=== PATIENT | female | born 1980 | race Caucasian/White ===

== ENCOUNTER 2020-05-16 23:34 | Emergency (ER) | payer SELFPAY ==
[2020-05-17] MEDS ORDERED: IBUPROFEN 400 MG TAB ONE (00:25)
--- NOTE | 2020-05-17 00:43 | EDPHYS ---
Physician Documentation [facility] Name: Suyapa Camara Age: 39 yrs Sex: Female : 1980 Arrival Date: 05/16/2020 Time: 23:37 Bed 18 Private MD: ARABELLA Physician Nathanael Ferreira HPI: 05/17 00:23 This 39 yrs old Female presents to ER via Wheelchair with complaints of Fall kb Injury, Ankle Injury, Ankle Swelling. 00:23 The patient presents with an injury, pain, swelling, tenderness. The complaints affect kb the right ankle. Onset: The symptoms/episode began/occurred "a few hours ago". Context: The problem was sustained at home, resulted from a mis-step by the patient, The patient can partially bear weight on the affected extremity. must have assistance. Associated signs and symptoms: Pertinent positives: swelling, Pertinent negatives: calf tenderness, fever, nausea, numbness, rash, tingling, vomiting, warmth, weakness. Modifying factors: The symptoms are alleviated by nothing, the symptoms are aggravated by weight bearing, movement. Severity of symptoms: At their worst the symptoms were moderate, in the emergency department the symptoms are unchanged. The patient has not experienced similar symptoms in the past. The patient has not recently seen a physician. 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 - Social history:: Smoking status: Patient reports the use of cigarette tobacco products, smokes one pack cigarettes per day. ROS: 00:22 Constitutional: Negative for fever, chills, and weight loss, Cardiovascular: Negative kb for chest pain, palpitations, and edema, Respiratory: Negative for shortness of breath, cough, wheezing, and pleuritic chest pain, Abdomen/GI: Negative for abdominal pain, nausea, vomiting, diarrhea, and constipation, Back: Negative for injury and pain, Skin: Negative for injury, rash, and discoloration, Neuro: Negative for headache, weakness, numbness, tingling, and seizure. 00:22 MS/extremity: Positive for injury or acute deformity, decreased range of motion, pain, swelling, tenderness, of the right medial malleolus and right lateral malleolus. Exam: 00:22 Constitutional: This is a well developed, well nourished patient who is awake, alert, kb and in no acute distress. Head/Face: Normocephalic, atraumatic. Chest/axilla: Normal chest wall appearance and motion. Nontender with no deformity. No lesions are appreciated. Cardiovascular: Regular rate and rhythm with a normal S1 and S2. No gallops, murmurs, or rubs. Normal PMI, no JVD. No pulse deficits. Respiratory: Lungs have equal breath sounds bilaterally, clear to auscultation and percussion. No rales, rhonchi or wheezes noted. No increased work of breathing, no retractions or nasal flaring. Abdomen/GI: Soft, non-tender, with normal bowel sounds. No distension or tympany. No guarding or rebound. No evidence of tenderness throughout. Skin: Warm, dry with normal turgor. Normal color with no rashes, no lesions, and no evidence of cellulitis. Neuro: Awake and alert, GCS 15, oriented to person, place, time, and situation. Cranial nerves II-XII grossly intact. Motor strength 5/5 in all extremities. Sensory grossly intact. Cerebellar exam normal. Normal gait. 00:22 Musculoskeletal/extremity: Extremities: grossly normal except: noted in the right medial malleolus and right lateral malleolus: decreased ROM, pain, swelling, tenderness, ROM: limited active range of motion due to pain, limited passive range of motion due to pain, Circulation is intact in all extremities. Sensation intact. Weight bearing: is unable to bear weight. Vital Signs: 00:04 BP 128 / 79; Pulse 81; Resp 20; Temp 98.5; Pulse Ox 96% on R/A; Weight 81.65 kg; Height vc 5 ft. 3 in. (160.02 cm); Pain 2/10; 01:00 BP 123 / 71; Pulse 72; Resp 21; Pulse Ox 97% on R/A; Pain 1/10; vc 00:04 Body Mass Index 31.89 (81.65 kg, 160.02 cm) vc MDM: 00:08 Patient medically screened. kb 00:22 Data reviewed: vital signs, nurses notes. Data interpreted: Pulse oximetry: on room air kb is 96 %. Interpretation: normal. 00:42 Counseling: I had a detailed discussion with the patient and/or guardian regarding: the kb historical points, exam findings, and any diagnostic results supporting the discharge/admit diagnosis, radiology results, the need for outpatient follow up, a orthopedic surgeon, to return to the emergency department if symptoms worsen or persist or if there are any questions or concerns that arise at home. 05/17 00:08 Order name: Ankle Right 3 View XRAY kb 05/17 00:41 Order name: Crutches; Complete Time: 02:02 kb 05/17 00:41 Order name: Short Leg Splint; Complete Time: 02:02 kb Administered Medications: 00:20 Drug: Ibuprofen 400 mg Route: PO; vc 00:53 Follow up: Response: No adverse reaction vc Disposition: 05/17/20 00:43 Discharged to Home. Impression: Sprain of ankle. - Condition is Stable. - Discharge Instructions: Ankle Sprain, [id number]. - Prescriptions for Ibuprofen 800 mg Oral Tablet - take 1 tablet by ORAL route every 8 hours As needed take with food; 30 tablet. - Medication Reconciliation Form, Thank You Letter, Antibiotic Education, Prescription Opioid Use form. - Follow up: Emergency Department; When: As needed; Reason: Worsening of condition. Follow up: Private Physician; When: 2 - 3 days; Reason: Recheck today's complaints, Continuance of care, Re-evaluation by your physician. Addendum: 05/18/2020 08:47 Co-signature as Attending Physician, Nathanael Ferreira MD I agree with the assessment and c cotto plan of care. Signatures: Dispatcher [employer] Corine Henriquez, SUZIE-C ENVIRONMENTAL OFFICER-Nathanael Yin MD MD cha Calcote, Vanessa RN RN vc Corrections: (The following items were deleted from the chart) 05/17 01:43 00:43 05/17/2020 00:43 Discharged to Home. Impression: Sprain of ankle. Condition is vc Stable. Forms are Medication Reconciliation Form, Thank You Letter, Antibiotic Education, Prescription Opioid Use. Follow up: Emergency Department; When: As needed; Reason: Worsening of condition. Follow up: Private Physician; When: 2 - 3 days; Reason: Recheck today's complaints, Continuance of care, Re-evaluation by your physician. kb
--- NOTE | 2020-05-17 00:43 | ER ---
Nurse's Notes [facility] Name: Suyapa Camara Age: 39 yrs Sex: Female : 1980 Arrival Date: 05/16/2020 Time: 23:37 Bed 18 Private MD: Diagnosis: Sprain of ankle Presentation: 05/17 00:04 Chief complaint: Patient states: "I fell down the last two steps of my stairs a few vc hours ago. My ankle hurts to walk, hurts if I move it, and hurts if its not supported.". Coronavirus screen: cough unrelated to allergies, Client presents with at least one sign or symptom that may indicate coronavirus-19. Standard/surgical mask placed on the client. Patient states her cough is because she is a smoker. Ebola Screen: No symptoms or risks identified at this time. Initial Sepsis Screen: Does the patient meet any 2 criteria? No. Patient's initial sepsis screen is negative. Does the patient have a suspected source of infection? No. Patient's initial sepsis screen is negative. Risk Assessment: Do you want to hurt yourself or someone else? Patient reports no desire to harm self or others. Onset of symptoms was May 16, 2020. 00:04 Method Of Arrival: Wheelchair vc 00:04 Acuity: KAVIN 4 vc Triage Assessment: 00:09 General: Appears in no apparent distress. uncomfortable, Behavior is calm, cooperative, vc appropriate for age. Pain: Complains of pain in right lateral malleolus and right medial malleolus Pain does not radiate. Pain currently is 2 out of 10 on a pain scale. at worst was 7 out of 10 on a pain scale. Quality of pain is described as sharp, Pain began suddenly, Alleviated by rest. 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 - Social history:: Smoking status: Patient reports the use of cigarette tobacco products, smokes one pack cigarettes per day. Screenin:08 Abuse screen: Denies threats or abuse. Nutritional screening: No deficits noted. vc Tuberculosis screening: No symptoms or risk factors identified. Fall Risk Fall in past 12 months (25 points). No secondary diagnosis (0 pts). No IV (0 pts). Ambulatory Aid- None/Bed Rest/Nurse Assist (0 pts). Gait- Impaired (20 pts.). Mental Status- Oriented to own ability (0 pts). Total Gusman Fall Scale indicates High Risk Score (45 or more points). Placed Close to Nursing Station Frequent Obs/Assessments Occuring As available patient and family educated on Fall Prevention Program and Strategies. Assessment: 00:00 General: Appears in no apparent distress. uncomfortable, obese, Behavior is calm, vc cooperative, appropriate for age. Pain: Complains of pain in right medial malleolus and right lateral malleolus. Neuro: Level of Consciousness is awake, alert, obeys commands. Cardiovascular: Capillary refill < 3 seconds Patient's skin is warm and dry. Respiratory: Airway is patent Respiratory effort is even, unlabored, Respiratory pattern is regular, symmetrical. GI: No signs and/or symptoms were reported involving the gastrointestinal system. : No signs and/or symptoms were reported regarding the genitourinary system. Musculoskeletal: Range of motion: limited in right ankle. 01:00 Reassessment: Patient and/or family updated on plan of care and expected duration. Pain vc level reassessed. Patient is alert, oriented x 3, equal unlabored respirations, skin warm/dry/pink. Patient states as long as she has her foot propped up there is no pain. Vital Signs: 00:04 BP 128 / 79; Pulse 81; Resp 20; Temp 98.5; Pulse Ox 96% on R/A; Weight 81.65 kg; Height vc 5 ft. 3 in. (160.02 cm); Pain 2/10; 01:00 BP 123 / 71; Pulse 72; Resp 21; Pulse Ox 97% on R/A; Pain 1/10; vc 00:04 Body Mass Index 31.89 (81.65 kg, 160.02 cm) vc ED Course: 05/16 23:37 Patient arrived in ED. cf2 23:51 Elizabeth Taylor RN is Primary Nurse. vc 05/17 00:07 Triage completed. vc 00:08 Corine Burkett FNP-C is [facility]. kb 00:08 Nathanael Ferreira MD is Attending Physician. kb 00:11 Arm band placed on right wrist. vc 00:11 Patient has correct armband on for positive identification. Bed in low position. Pulse vc ox on. NIBP on. 00:45 Ankle Right 3 View XRAY In Process Unspecified. EDMS 01:34 Crutch training done. Orthoglass splint: Posterior short lleg splint applied on right oe leg. 01:40 No provider procedures requiring assistance completed. vc 01:41 Patient did not have IV access during this emergency room visit. vc Administered Medications: 00:20 Drug: Ibuprofen 400 mg Route: PO; vc 00:53 Follow up: Response: No adverse reaction vc Outcome: 00:43 Discharge ordered by MD. kb 01:41 Discharged to home with crutches. vc 01:41 Condition: good 01:41 Discharge instructions given to patient, Instructed on discharge instructions, follow up and referral plans. crutch walking, Demonstrated understanding of instructions, follow-up care, medications, crutch walking, splint care, Prescriptions given X 1. 01:43 Patient left the ED. vc Signatures: Dispatcher [employer] EDMS Corine Burkett, CLINICAL DOCUMENTATION CONSULTANT-C CLINICAL DOCUMENTATION CONSULTANT-Ckb Gee Concepcion Celesta cf2 Elizabeth Taylor RN RN vc Corrections: (The following items were deleted from the chart) 02:03 01:41 No provider procedures requiring assistance completed. vc vc
--- NOTE | 2020-05-17 09:25 | RAD REPORT ---
EXAM DESCRIPTION: RAD - Ankle Right 3 View - 05/17/2020 12:45 am CLINICAL HISTORY: Ankle pain, fall with twisting injury COMPARISON: None. FINDINGS: No fracture, dislocation or periosteal reaction. No joint effusion seen. No joint space na rrowing. Lateral soft tissue swelling is present. IMPRESSION: Soft tissue swelling with no right ankle fracture.
[2020-05-20 19:08] VITALS: BP 128/79; TEMP 98.5; O2SAT 96
== END 2020-05-17 01:43 | disposition home or self-care (01) ==
LOC: ER 23:34
DX: S93.401A Sprain of unspecified ligament of right ankle, initial encounter (principal); X58.XXXA Exposure to other specified factors, initial encounter; Y93.9 Activity, unspecified; Y92.009 Unspecified place in unspecified non-institutional (private) residence as the place of occurrence of the external cause; I10 Essential (primary) hypertension; F17.210 Nicotine dependence, cigarettes, uncomplicated
CPT/HCPCS: 99284

== ENCOUNTER 2022-01-13 02:33 | Emergency (ER) | payer SELFPAY ==
--- NOTE | 2022-01-13 02:50 | EDPHYS ---
Physician Documentation [facility] Name: Suyapa Camara Age: 41 yrs Sex: Female : 1980 Arrival Date: 01/13/2022 Time: 02:35 Bed 16 Private MD: ARABELLA Physician Nathanael Ferreira HPI: 01/13 02:45 This 41 yrs old Female presents to ER via Unassigned with complaints of manuel Toothache. 02:45 The patient presents with pain, redness, swelling. The problem is located in the lower manuel right first molar. Onset: The symptoms/episode began/occurred 2 day(s) ago. Duration: The symptoms are continuous, and are steadily getting worse. Modifying factors: The symptoms are alleviated by nothing, the symptoms are aggravated by chewing, cold fluids. Associated signs and symptoms: The patient has no apparent associated signs or symptoms. Severity of symptoms: At their worst the symptoms were moderate, in the emergency department the symptoms are unchanged. The patient has experienced similar episodes in the past, a few times. 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 - Social history:: Smoking status: Patient reports the use of cigarette tobacco products, smokes one pack cigarettes per day. - Family history:: not pertinent. ROS: 02:45 Constitutional: Negative for fever, chills, and weight loss, Eyes: Negative for injury, manuel pain, redness, and discharge, Neck: Negative for injury, pain, and swelling, Cardiovascular: Negative for chest pain, palpitations, and edema, Respiratory: Negative for shortness of breath, cough, wheezing, and pleuritic chest pain, Abdomen/GI: Negative for abdominal pain, nausea, vomiting, diarrhea, and constipation, Back: Negative for injury and pain, : Negative for injury, bleeding, discharge, and swelling, MS/Extremity: Negative for injury and deformity, Skin: Negative for injury, rash, and discoloration, Neuro: Negative for headache, weakness, numbness, tingling, and seizure, Psych: Negative for depression, anxiety, suicide ideation, homicidal ideation, and hallucinations, Allergy/Immunology: Negative for hives, rash, and allergies, Endocrine: Negative for neck swelling, polydipsia, polyuria, polyphagia, and marked weight changes, Hematologic/Lymphatic: Negative for swollen nodes, abnormal bleeding, and unusual bruising. 02:45 ENT: Positive for Gum pain Exam: 02:45 Constitutional: This is a well developed, well nourished patient who is awake, alert, manuel and in no acute distress. Head/Face: Normocephalic, atraumatic. Eyes: Pupils equal round and reactive to light, extra-ocular motions intact. Lids and lashes normal. Conjunctiva and sclera are non-icteric and not injected. Cornea within normal limits. Periorbital areas with no swelling, redness, or edema. Neck: Trachea midline, no thyromegaly or masses palpated, and no cervical lymphadenopathy. Supple, full range of motion without nuchal rigidity, or vertebral point tenderness. No Meningismus. Chest/axilla: Normal chest wall appearance and motion. Nontender with no deformity. No lesions are appreciated. Cardiovascular: Regular rate and rhythm with a normal S1 and S2. No gallops, murmurs, or rubs. Normal PMI, no JVD. No pulse deficits. Respiratory: Lungs have equal breath sounds bilaterally, clear to auscultation and percussion. No rales, rhonchi or wheezes noted. No increased work of breathing, no retractions or nasal flaring. Abdomen/GI: Soft, non-tender, with normal bowel sounds. No distension or tympany. No guarding or rebound. No evidence of tenderness throughout. Back: No spinal tenderness. No costovertebral tenderness. Full range of motion. Skin: Warm, dry with normal turgor. Normal color with no rashes, no lesions, and no evidence of cellulitis. MS/ Extremity: Pulses equal, no cyanosis. Neurovascular intact. Full, normal range of motion. Neuro: Awake and alert, GCS 15, oriented to person, place, time, and situation. Cranial nerves II-XII grossly intact. Motor strength 5/5 in all extremities. Sensory grossly intact. Cerebellar exam normal. Normal gait. Psych: Awake, alert, with orientation to person, place and time. Behavior, mood, and affect are within normal limits. 02:45 ENT: Mouth: Gums: noted to have cellulitis, reddened, swollen, on the lower right first molar. Vital Signs: 02:40 BP 147 / 107; Pulse 77; Resp 18; Temp 97.4(TE); Pulse Ox 100% on R/A; Weight 79.38 kg lp1 (R); Height 5 ft. 3 in. (160.02 cm); Pain 7/10; 02:40 Body Mass Index 31.00 (79.38 kg, 160.02 cm) lp1 MDM: 02:37 Patient medically screened. manuel 02:47 Differential diagnosis: dental caries, dental abscess, gingivostomatitis. Data manuel reviewed: vital signs, nurses notes. Data interpreted: food clerk: not applicable for this patient encounter. rate is 85 beats/min, rhythm is regular, Pulse oximetry: on room air is 100 %. Test interpretation: by ED physician or midlevel provider:. Counseling: I had a detailed discussion with the patient and/or guardian regarding: the historical points, exam findings, and any diagnostic results supporting the discharge/admit diagnosis, the need for outpatient follow up, for definitive care, a dentist, an oral maxilofacial specialist. Administered Medications: 03:13 Drug: Keller (HYDROcodone-acetaminophen) 10 mg-325 mg 1 tabs Route: PO; sm5 03:53 Follow up: Response: Pain is decreased sm5 03:13 Drug: Augmentin (Amoxicillin-Clavulanate) 875 mg Route: PO; sm5 03:53 Follow up: Response: No adverse reaction sm5 Disposition Summary: 01/13/22 02:50 Discharge Ordered Location: Home manuel Problem: new manuel Symptoms: have improved manuel Condition: Stable manuel Diagnosis - Dental root caries manuel - Dental caries, unspecified manuel Followup: manuel - With: Private Physician - When: 2 - 3 days - Reason: Recheck today's complaints, Continuance of care, Re-evaluation by your physician Followup: manuel - With: Michael Babin DDS - When: 2 - 3 days - Reason: Recheck today's complaints, Re-evaluation by your physician Discharge Instructions: - Discharge Summary Sheet manuel - Dental Caries, Adult manuel - Dental Pain manuel - Dental Pain, [id number] manuel - Diet and Dental Disease manuel - Dental Caries, Adult, [id number] [facility] Forms: - Medication Reconciliation Form manuel - Thank You Letter maunel - Antibiotic Education manuel - Prescription Opioid Use [facility] Prescriptions: - Augmentin 875-125 mg Oral Tablet - take 1 tablet by ORAL route every 12 hours for 10 days; 20 tablet; Refills: 0, [facility] Product Selection Permitted - Ibuprofen 600 mg Oral Tablet - take 1 tablet by ORAL route every 6 hours As needed take with food; 20 tablet; [facility] Refills: 0, Product Selection Permitted - Tylenol-Codeine #3 300 mg-30 mg Oral - take 2 tablet by ORAL route every 6 hours; 20 tablet; Refills: 0, Product [facility] Selection Permitted Signatures: Nathanael Ferreira MD MD cha Pena, Laura, RN RN lp1 Arpita Gutiérrez RN RN sm5
[2022-01-13] MEDS ORDERED: AMOX/K CLAV 875 MG TAB ONE (03:12)
[2022-01-13] MEDS ORDERED: HYDROCODONE/APAP 10/325 TAB ONE (03:12)
--- NOTE | 2022-01-13 03:53 | ER ---
Nurse's Notes [facility] Name: Suyapa Camara Age: 41 yrs Sex: Female : 1980 Arrival Date: 01/13/2022 Time: 02:35 Bed 16 Private MD: Diagnosis: Dental root caries;Dental caries, unspecified Presentation: 01/13 02:40 Chief complaint: Patient states: Reports pain to lower left side of mouth, reports lp1 cracked tooth; upcoming appt with dentist but pain too severe tonight. 02:40 Coronavirus screen: At this time, the client does not indicate any symptoms associated lp1 with coronavirus-19. Ebola Screen: No symptoms or risks identified at this time. Initial Sepsis Screen: Does the patient meet any 2 criteria? No. Patient's initial sepsis screen is negative. Does the patient have a suspected source of infection? No. Patient's initial sepsis screen is negative. Risk Assessment: Do you want to hurt yourself or someone else? Patient reports no desire to harm self or others. Onset of symptoms was January 13, 2022. 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 - Social history:: Smoking status: Patient reports the use of cigarette tobacco products, smokes one pack cigarettes per day. - Family history:: not pertinent. Screenin:09 Abuse screen: Denies threats or abuse. Denies injuries from another. Nutritional lp1 screening: No deficits noted. Tuberculosis screening: No symptoms or risk factors identified. Fall Risk None identified. Assessment: 03:00 General: Appears uncomfortable, Behavior is cooperative. Pain: Complains of pain in sm5 face and lower right first molar and mouth. Neuro: No deficits noted. Level of Consciousness is awake, alert, obeys commands, Oriented to person, place, time, situation. Cardiovascular: No deficits noted. Capillary refill < 3 seconds Patient's skin is warm and dry. Respiratory: No deficits noted. Airway is patent Trachea midline Respiratory effort is even, unlabored. EENT: Reports pain in face and lower right first molar and mouth. Vital Signs: 02:40 BP 147 / 107; Pulse 77; Resp 18; Temp 97.4(TE); Pulse Ox 100% on R/A; Weight 79.38 kg lp1 (R); Height 5 ft. 3 in. (160.02 cm); Pain 7/10; 02:40 Body Mass Index 31.00 (79.38 kg, 160.02 cm) lp1 ED Course: 02:35 Patient arrived in ED. mr 02:37 Nathanael Ferreira MD is Attending Physician. manuel 02:41 Arpita Gutiérrez, JASKARAN is Primary Nurse. [facility] 02:49 Michael Babin DDS is Referral Physician. [facility] 03:08 Triage completed. lp1 03:08 Arm band placed on. lp1 03:09 Patient has correct armband on for positive identification. lp1 03:10 No provider procedures requiring assistance completed. Patient did not have IV access lp1 during this emergency room visit. Administered Medications: 03:13 Drug: Watson (HYDROcodone-acetaminophen) 10 mg-325 mg 1 tabs Route: PO; 5 03:53 Follow up: Response: Pain is decreased [facility] monett 03:13 Drug: Augmentin (Amoxicillin-Clavulanate) 875 mg Route: PO; 5 03:53 Follow up: Response: No adverse reaction 5 Outcome: 02:50 Discharge ordered by . [facility] 03:52 Discharged to home ambulatory, with family. [facility]x monett 03:52 Condition: stable 03:52 Discharge instructions given to patient, family, Instructed on discharge instructions, follow up and referral plans. no drinking with medication, medication usage, Demonstrated understanding of instructions, follow-up care, medications, Prescriptions given X 3. 03:53 Patient left the ED. cox monett Signatures: Nathanael Ferreira MD MD cha Rivera, Mary mr RinaldiAdrienne, RN RN 1 Arpita Gutiérrez RN RN [facility]ett
[2022-01-13 04:41] VITALS: BP 147/107; TEMP 97.4; O2SAT 100
== END 2022-01-13 03:53 | disposition home or self-care (01) ==
LOC: ER 02:33
DX: K02.7 Dental root caries (principal); I10 Essential (primary) hypertension; F17.210 Nicotine dependence, cigarettes, uncomplicated